=== PATIENT | male | born 1995 | race Native Hawaiian/Other Pacific Islander ===

== ENCOUNTER 2017-07-24 21:16 | Inpatient (IN) | payer BC ==
[~2017-07-24] VITALS: Ht 162.6 cm; Wt 68.2 kg
[2017-07-24 21:15] VITALS: O2SAT 100
[~2017-07-24 21:16] MED LIST: CALCIUM CHLORIDE 10% SOLN 1 GRAM/10 ML SYR IV ONE; DEXAMETHASONE SOD PHOS 4 MG/ML VIAL IV ONE; NORMOSOL R INJ 1,000 ML IV ONE; ONDANSETRON HCL 4 MG/2 ML VIAL IV ONE; PHENYLEPH/NS 1000 MCG/10 ML SYR IV ONE; PROPOFOL 200 MG/20 ML AMP IV ONE; SUCCINYLCHOLINE CHLORIDE 200 MG/10 ML VIAL IV ONE; ceFAZolin INJ 1,000 MG VIAL IV ONE
[2017-07-24] MEDS ORDERED: ONDANSETRON HCL 4 MG/2 ML VIAL ONE (21:24)
[2017-07-24] MEDS ORDERED: DIPHTH/TETANUS/ACEL PERTUSSIS (BOOSTER) 0.5 ML VIAL/PFS IM ONE (21:24)
[2017-07-24 21:40] LABS: AUTOMATED NEUTROPHIL # 12.7 TH/MM3 (1.8-7.7); BASOPHIL # 0.1 TH/MM3 (0-0.2); BASOPHIL % 0.5 % (0.0-2.0); EOSINOPHIL # 0.5 TH/MM3 (0-0.4); EOSINOPHIL % 2.5 % (0.0-4.0); HEMATOCRIT 31.3 % (39.0-51.0); HEMOGLOBIN 10.2 GM/DL (13.0-17.0); LYMPH % 25.3 % (9.0-44.0); LYMPHOCYTE # 4.9 TH/MM3 (1.0-4.8); MEAN CELL VOLUME 76.6 FL (80.0-100.0); MEAN CORPUSCULAR HGB CONC 32.6 % (32.0-36.0); MEAN PLATELET VOLUME 6.8 FL (7.0-11.0); MONO % 6.2 % (0.0-8.0); MONOCYTE # 1.2 TH/MM3 (0-0.9); NEUT % 65.5 % (16.0-70.0); PLATELET COUNT 325 TH/MM3 (150-450); RED BLOOD COUNT 4.09 MIL/MM3 (4.50-5.90); RED CELL DISTRIBUTION WIDTH 13.9 % (11.6-17.2); WHITE BLOOD COUNT 19.4 TH/MM3 (4.0-11.0)
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
[2017-07-24] MEDS ORDERED: HEPARIN SODIUM - SQ 10,000 UNITS/ML VIAL ONE (21:54)
[2017-07-24] MEDS ORDERED: HEPARIN SODIUM - IV 10,000 UNITS/10 ML VIAL ONE (21:54)
[2017-07-24] MEDS ORDERED: PROTAMINE SULFATE 50 MG/5 ML VIAL ONE (21:55)
[2017-07-24] MEDS ORDERED: CEFAZOLIN INJ 2,000 MG in SODIUM CHLORIDE 0.9% INJ 100 ML IV SCH (22:15)
--- NOTE | 2017-07-24 22:15 | RADRPT ---
EXAM DATE/TIME: 07/24/2017 21:18 [facility] COMPARISON: No previous studies available for comparison. INDICATIONS : Trauma alert. Right forearm laceration. MEDICAL HISTORY : None. SURGICAL HISTORY : None. ENCOUNTER: Initial ACUITY: 1 day PAIN SCORE: 8/10 LOCATION: Right forearm FINDINGS: No acute bony abnormality. Right forearm laceration. CONCLUSION: 1. No acute bony abnormality or radiopaque foreign body. Misha Gomez MD on July 24, 2017 at 22:12 Board Certified Radiologist. This report was verified electronically.
--- NOTE | 2017-07-24 22:28 | RADRPT ---
EXAM DATE/TIME: 07/24/2017 21:18 [facility] COMPARISON: No previous studies available for comparison. INDICATIONS : Trauma alert. Right forearm laceration. MEDICAL HISTORY : None. SURGICAL HISTORY : None. ENCOUNTER: Initial ACUITY: 1 day PAIN SCORE: 8/10 LOCATION: Right forearm FINDINGS: A single view of the chest demonstrates the lungs to be symmetrically aerated without evidence of mas s, infiltrate or effusion. The cardiomediastinal contours are unremarkable. Osseous structures are intact. CONCLUSION: No acute disease. Misha Gomez MD on July 24, 2017 at 22:24 Board Certified Radiologist. This report was verified electronically.
[2017-07-24] MEDS ORDERED: *MEPERIDINE 25 MG INJ VIAL PERIprocedural Use ONLY ONE (23:30)
[2017-07-24] MEDS ORDERED: MORPHINE SULFATE 2 MG/ML SYRINGE IV PRN (23:45)
[2017-07-25] MEDS ORDERED: DO NOT ADM ANY ANTICOAGULANT DRUGS PRN (00:15)
[2017-07-25] MEDS ORDERED: diphenhydrAMINE HCL 50 MG/ML VIAL ONE (06:50)
[2017-07-25] MEDS ORDERED: MORPHINE SULFATE 2 MG/ML SYRINGE IV PUSH PRN (07:00)
[2017-07-25] MEDS ORDERED: ENALAPRILAT 1.25 MG/ML VIAL IV PUSH PRN (07:00)
[2017-07-25] MEDS ORDERED: SODIUM CHLORIDE 0.9% FLUSH 10 ML FLUSH IV FLUSH PRN (07:00)
[2017-07-25] MEDS ORDERED: ONDANSETRON HCL 4 MG/2 ML VIAL IV PUSH PRN (07:00)
[2017-07-25] MEDS ORDERED: ACETAMINOPHEN/HYDROcodone 325 MG/5 MG TAB PO PRN (07:00)
[2017-07-25] MEDS ORDERED: POTASSIUM CHLORIDE 20 MEQ CONTROLLED RELEASE TAB PO ONE (08:00)
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
[2017-07-25] MEDS: GABAPENTIN 300 MG CAP PO SCH ×3 (11:28→18:00)
[2017-07-25] MEDS: DOCUSATE SODIUM 100 MG CAP PO SCH ×2 (11:28→20:31)
[2017-07-25] MEDS: ACETAMINOPHEN/HYDROcodone 325 MG/5 MG TAB PO PRN ×2 (11:31→19:22)
[2017-07-25] MEDS: MAGNESIUM HYDROXIDE SUSP 30 ML CUP PO SCH ×2 (11:34→20:31)
[2017-07-25 12:00] VITALS: BP 188/82; PULSE 59; RESP 18; TEMP 97.8; O2SAT 100
[2017-07-25] MEDS: SODIUM CHLOR 0.9% 1000 ML INJ 1,000 ML IV SCH ×2 (12:30)
[2017-07-25 13:32] VITALS: O2SAT 100
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
[2017-07-25 16:00] VITALS: BP 162/70; PULSE 70; RESP 18; TEMP 97.4; O2SAT 98
[2017-07-25 19:19] VITALS: BP 183/93; PULSE 97; RESP 18; TEMP 98; O2SAT 100
[2017-07-25 20:30] VITALS: BP 144/87
[2017-07-25] MEDS: ENOXAPARIN SODIUM 30 MG/0.3 ML SYRINGE SQ SCH (20:31)
[2017-07-26] MEDS: ACETAMINOPHEN/HYDROcodone 325 MG/5 MG TAB PO PRN ×3 (00:51→18:50)
[2017-07-26 00:52] VITALS: BP 130/63; PULSE 103; RESP 19; TEMP 98; O2SAT 100
[2017-07-26] MEDS: SODIUM CHLOR 0.9% 1000 ML INJ 1,000 ML IV SCH ×2 (01:00→13:30)
[2017-07-26 05:10] VITALS: BP 123/58; PULSE 65; RESP 18; TEMP 97.5; O2SAT 100
[2017-07-26 06:46] LABS: ALT (GPT) 21 U/L (12-78); AST (GOT) 22 U/L (15-37); BICARBONATE 30.1 MEQ/L (21.0-32.0); BLOOD UREA NITROGEN 9 MG/DL (7-18); CALCIUM 7.9 MG/DL (8.5-10.1); CHLORIDE 106 MEQ/L (98-107); CREATININE 0.81 MG/DL (0.60-1.30); GLOMERULAR FILTRATION RATE 82 ML/MIN (>89); GLUCOSE,RANDOM 106 MG/DL (74-106); SODIUM (NA) 142 MEQ/L (136-145)
[2017-07-26 06:48] LABS: ALKALINE PHOSPHATASE 31 U/L (45-117); TOTAL BILIRUBIN ADULT 0.7 MG/DL (0.2-1.0); TOTAL PROTEIN 5.6 GM/DL (6.4-8.2)
[2017-07-26 06:49] LABS: AUTOMATED NEUTROPHIL # 6.4 TH/MM3 (1.8-7.7); BASOPHIL % 0.2 % (0.0-2.0); EOSINOPHIL # 0.2 TH/MM3 (0-0.4); EOSINOPHIL % 1.5 % (0.0-4.0); HEMOGLOBIN 9.2 GM/DL (13.0-17.0); LYMPH % 34.7 % (9.0-44.0); MEAN CELL VOLUME 77.5 FL (80.0-100.0); MEAN CORPUSCULAR HEMOGLOBIN 26.6 PG (27.0-34.0); MEAN CORPUSCULAR HGB CONC 34.3 % (32.0-36.0); MEAN PLATELET VOLUME 7.1 FL (7.0-11.0); MONO % 7.7 % (0.0-8.0); MONOCYTE # 0.9 TH/MM3 (0-0.9); NEUT % 55.9 % (16.0-70.0); PLATELET COUNT 189 TH/MM3 (150-450); RED BLOOD COUNT 3.48 MIL/MM3 (4.50-5.90); RED CELL DISTRIBUTION WIDTH 14.7 % (11.6-17.2); WHITE BLOOD COUNT 11.5 TH/MM3 (4.0-11.0)
[2017-07-26] MEDS ORDERED: DOCU1CAP39 PO (07:53)
[2017-07-26] MEDS ORDERED: MAGN30S PO (07:53)
[2017-07-26 07:57] VITALS: BP 159/69; PULSE 71; RESP 18; TEMP 98.1; O2SAT 100
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
[2017-07-26] MEDS: GABAPENTIN 300 MG CAP PO SCH ×3 (09:24→18:49)
[2017-07-26] MEDS: MAGNESIUM HYDROXIDE SUSP 30 ML CUP PO SCH (09:24)
[2017-07-26] MEDS: ENOXAPARIN SODIUM 30 MG/0.3 ML SYRINGE SQ SCH (09:24)
[2017-07-26] MEDS: DOCUSATE SODIUM 100 MG CAP PO SCH (09:24)
[2017-07-26 11:55] VITALS: BP 177/74; PULSE 84; RESP 18; TEMP 97.4; O2SAT 98
[2017-07-26 16:00] VITALS: BP 133/97; PULSE 87; RESP 18; TEMP 97.9; O2SAT 100
--- NOTE | 2017-08-03 15:22 | HHI.DS ---
Discharge Summary Admission Date Jul 24, 2017 at 21:55 Discharge Date: Jul 26, 2017 Admitting Diagnosis Vascular injury right upper extremity with hemorrhagic shock (1) Hemorrhagic shock ICD Codes: R57.8 - Other shock Diagnosis: Principal Status: Acute (2) Laceration of arm, right, multiple sites ICD Codes: S41.111A - Laceration without foreign body of right upper arm, initial encounter Diagnosis: Principal Status: Acute (3) Vascular injury of arm ICD Codes: S45.909A - Unspecified injury of unspecified blood vessel at shoulder and upper arm level, unspecified arm, initial encounter Diagnosis: Principal Status: Acute Significant Findings Laboratory Tests Test 07/24/17 21:21 07/24/17 22:26 07/26/17 05:25 07/30/17 06:20 Bedside Hemoglobin 10.2 G/DL Bedside Hematocrit 30.0 % Bedside Sodium 145 MMOL/L Bedside Potassium 2.8 MMOL/L Bedside Chloride 103 MMOL/L Bedside Blood Urea Nitrogen 14 MG/DL Bedside Creatinine 1.1 MG/DL Bedside Glucose 124 MG/DL Blood Gas Puncture Site UNKNOWN Blood Gas Patient Temperature 98.6 Blood Gas HCO3 23 mmol/L Blood Gas Base Excess -1.7 mmol/L Blood Gas Oxygen Saturation 96 % Arterial Blood pH 7.39 Arterial Blood Partial Pressure CO2 38 mmHg Arterial Blood Partial Pressure O2 272 mmHg Arterial Blood Oxygen Content 10.0 Vol % Arterial Blood Carboxyhemoglobin 1.5 % Arterial Blood Methemoglobin 1.7 % Blood Gas Hemoglobin 6.9 G/DL Oxygen Delivery Device OR Blood Gas Inspired Oxygen 56 % White Blood Count 11.5 TH/MM3 Red Blood Count 3.48 MIL/MM3 Hemoglobin 9.2 GM/DL Hematocrit 27.0 % Mean Corpuscular Volume 77.5 FL Mean Corpuscular Hemoglobin 26.6 PG Mean Corpuscular Hemoglobin Concent 34.3 % Red Cell Distribution Width 14.7 % Platelet Count 189 TH/MM3 Mean Platelet Volume 7.1 FL Neutrophils (%) (Auto) 55.9 % Lymphocytes (%) (Auto) 34.7 % Monocytes (%) (Auto) 7.7 % Eosinophils (%) (Auto) 1.5 % Basophils (%) (Auto) 0.2 % Neutrophils # (Auto) 6.4 TH/MM3 Lymphocytes # (Auto) 4.0 TH/MM3 Monocytes # (Auto) 0.9 TH/MM3 Eosinophils # (Auto) 0.2 TH/MM3 Basophils # (Auto) 0.0 TH/MM3 CBC Comment DIFF FINAL Differential Comment Blood Urea Nitrogen 9 MG/DL Creatinine 0.81 MG/DL Random Glucose 106 MG/DL Total Protein 5.6 GM/DL Albumin 3.0 GM/DL Calcium Level 7.9 MG/DL Alkaline Phosphatase 31 U/L Aspartate Amino Transf (AST/SGOT) 22 U/L Alanine Aminotransferase (ALT/SGPT) 21 U/L Total Bilirubin 0.7 MG/DL Sodium Level 142 MEQ/L Potassium Level 3.6 MEQ/L Chloride Level 106 MEQ/L Carbon Dioxide Level 30.1 MEQ/L Anion Gap 6 MEQ/L Estimat Glomerular Filtration Rate 82 ML/MIN Lab Scanned Report Lab Reports - Other [id number] Imaging Last Impressions Chest X-Ray [id number]/[id number] Signed Impressions: Service Date/Time: Monday, July 24, 2017 21:18 - CONCLUSION: No acute disease. Misha Gmoez MD Radius/Ulna X-Ray 07/24/17 0000 Signed Impressions: Service Date/Time: Monday, July 24, 2017 21:18 - CONCLUSION: 1. No acute bony abnormality or radiopaque foreign body. Misha Gomez MD PE at Discharge GENERAL: This is a 21 year old male lying in bed. No distress noted. SKIN: Warm and dry. HEAD: Atraumatic. Normocephalic. EYES: PERRLA ENT: No nasal bleeding or discharge. Mucous membranes pink and moist. NECK: Trachea midline. No JVD. CARDIOVASCULAR: Regular rate and rhythm. RESPIRATORY: No accessory muscle use. Lungs are clear to auscultation. Breath sounds equal bilaterally. No distress or dyspnea. GASTROINTESTINAL: BS + x 4 quads. Abdomen soft, non-tender, nondistended. MUSCULOSKELETAL: Extremities without cyanosis, or edema. Right arm in Lucas bandage and sling. + peripheral pulses x 4 extremities. Warm with good capillary refill and sensation. Patient has decreased sensation to right index and middle finger. MAEW. NEUROLOGICAL: Awake and alert. Normal speech and pattern. Hospital Course [place]: This is a 21 year old male who punched a window. There was arterial bleeding with tourniquet applied for 1 hour. Unable to feel his right hand and forearm. Hypotensive and tachycardic. 2 units of emergency release blood INJURIES: RIGHT radial artery laceration Hypovolemia Procedures: 07/25: Repair of right radial artery. Repair of deep laceration. Consults: Vascular. Hand surgery. Case management. The patient is now tolerating a po diet. Eating and drinking well. Pain is being managed well with PO pain medications, and patient is being a provided with a script for pain meds upon discharge. (NO driving while taking narcotic pain medication enforced to patient.) Pt is having regular bowel movements, and have recommended to patient to continue with stool softeners while taking narcotic pain medications to prevent constipation. Pt has been participating in PT and OT while admitted at [facility] and has been ambulating with their assistance and independently . All follow up appointments have been provided and discussed with the patient. It is recommended that the patient keeps all his follow up appointments for continued recovery. Patient's condition and plan of care discussed with collaborating trauma surgeon. He is agreeable to plan for discharge today. Therefore, the patient is stable to be safely discharged home from a trauma surgery standpoint. Thank you for allowing us to participate in his care. We wish Jeevan the best in his recovery. Follow up with Dr. Velasquez outpatient Right radial artery laceration Vascular surgery consult Hand surgery consult 07/25: Right radial artery repair. Repair of deep laceration. Supportive care Sling for comfort and support Pain management PT and OT ordered [facility] out of bed Follow-up with hand surgery/Dr. Velasquez outpatient next week Pt Condition on Discharge: Stable Discharge Disposition: Discharge Home Discharge Instructions DIET: Follow Instructions for: As Tolerated, No Restrictions Activities you can perform: Non Weight Bearing Activities to Avoid: Driving for 24 hrs, Concussion Sports, Contact Sports, Lifting/Bending, Weight Bearing, Prolonged Standing, Strenuous Activity Other Activity Instructions: NWB RUE No driving while taking narcotic painmeds Remarks Seen and examined with the nurse practitioner overall stable we will discharge with outpatient follow-up Felisa Cates Aug 03, 2017 15:22 Monique Navarro MD Aug 09, 2017 14:56
--- NOTE | 2017-08-10 14:24 | MP ---
cc: David Holley MD DATE OF OPERATION: 07/24/2017 DATE OF SURGERY: 07/24/2017 PREOPERATIVE DIAGNOSIS: Traumatic injury of the right arm vasculature. POSTOPERATIVE DIAGNOSIS: Transection of right ulnar and radial arteries and transection of the median nerve. OPERATIVE PROCEDURE: Repair of the right dominant radial artery, irrigation and closure. SURGEON: MD Kishan ANESTHESIA: General. ESTIMATED BLOOD LOSS: 100 mL. INDICATIONS FOR PROCEDURE: This 21-year-old male apparently states he was angry, so he punched a glass plate window and of course cut his arm. The patient was transferred to our institution with a tourniquet on his arm. Apparently with release of the tourniquet, there was brisk bleeding. The patient was taken to the operating room. OPERATIVE PROCEDURE: The area is prepped and draped and then exposed. I remove the tourniquet and replace it with the operating room tourniquet. This one is now released to see what is bleeding. The patient has several bleeders from the cubital vein branches. These are quickly clamped with hemostats, ligated with 3-0 Vicryls. Now arterial bleeding is attended. The has no pulses in his hand and hand is cool. The patient's vessel is explored. He has a very high division of the brachial artery so the brachial artery is not in the antecubital fossa. Instead there is a very tiny ulnar artery and a fairly dominant, fairly big radial artery. The proximal ulnar artery is located and ligated; it is about 1 mm. The distal one cannot be even found. The radial artery, on the other hand, is big; it is about 3.5 mm. This one is transected; however, edges are brought together by dividing some of the tiny branches and then the radial artery is freshened up with Overton scissors and repaired with interrupted 6-0 Prolene stitches. Blood flow is reestablished. The patient now has a bounding pulse in his radial artery and hand readily pinks up. The rest of the antecubital fossa is explored. The patient clearly has cut median nerve and I will discuss this with Dr. Velasquez tomorrow. Right now there is too much swelling to do anything to it. The area is irrigated with saline and skin is approximated with 3-0 Prolene. The patient tolerates the procedure well. MD TESSIE Diego/FAUZIA , 01:53 PM , 02:23 PM
[2017-08-10] MEDS ORDERED: HYDR-3288 PO (15:57)
[2017-08-10] MEDS ORDERED: CEPH-460 PO (15:57)
== END 2017-07-26 19:35 | disposition home or self-care (01) | DRG 907 ==
LOC: HOR 21:16 → NEDA 21:55 → EDBD 21:55 → N06B 07-25 08:56
PROVIDERS: ADMIT Surgery; ATTEND Surgery
PROC: 03QB0ZZ Repair Right Radial Artery, Open Approach (ICD-10-PCS; 2017-07-24)
PROC: 30233N1 Transfusion of Nonautologous Red Blood Cells into Peripheral Vein, Percutaneous Approach (ICD-10-PCS; principal; 2017-07-24 21:45)
DX: S55.111A Laceration of radial artery at forearm level, right arm, initial encounter (principal); T79.4XXA Traumatic shock, initial encounter; S54.11XA Injury of median nerve at forearm level, right arm, initial encounter; S51.011A Laceration without foreign body of right elbow, initial encounter; R61 Generalized hyperhidrosis; R20.0 Anesthesia of skin; R00.0 Tachycardia, unspecified; W22.09XA Striking against other stationary object, initial encounter; F12.90 Cannabis use, unspecified, uncomplicated; F17.200 Nicotine dependence, unspecified, uncomplicated
CPT/HCPCS: 36430; 36600; 71045; 80048; 80053; 82805; 85025; 85384; 85610; 85730; 86850; 86900; 86901; 86920; 90471; 90715; 94150; 96374; 99291; G0390; J0330; J0690; J1100; J1200; J1644; J1650; J2175; J2370; J2405; J2720; J3010; J7030; P9016

== ENCOUNTER → 2017-08-10 | Day surgery (SDC) | payer BC ==
[~2017-08-10] VITALS: Ht 162.6 cm; Wt 62.3 kg
[~2017-08-10] MED LIST changes: +*morphine SULFATE 4 MG/ML PERIprocedure ONLY ONE; +ACETAMINOPHEN 1000 MG/100 ML 100 ML IV ONE; +ACETAMINOPHEN/HYDROcodone 325 MG/5 MG TAB PO PRN; +BUPIVACAINE HCL PF 0.5% 30 ML VIAL ONE; -CALCIUM CHLORIDE 10% SOLN 1 GRAM/10 ML SYR IV ONE; +CEPH-460 PO; +CHLORHEXIDINE GLUCONATE 2 % 1 PACK (2 CLOTHS) TOPICAL PRN; +DO NOT ADM ANY ANTICOAGULANT DRUGS PRN; +DOCU1CAP39 PO; +ESMOLOL HCL 100 MG/10 ML VIAL IV ONE; +FAMOTIDINE 20 MG/2 ML VIAL ONE; +GLYCOPYRROLATE 1 MG/5 ML SYRINGE IV PUSH ONE; +HYDR-3288 PO; +INSULIN HUMAN REGULAR 1,000 UNITS/10 ML VIAL SQ PRN; +KETOROLAC TROMETHAMINE 30 MG/ML (IVP) VIAL IV PUSH ONE; +LACTATED RINGER'S 1000 ML INJ 1,000 ML IV ONE; +LACTATED RINGER'S 1000 ML IV PRN; +LIDOCAINE HCL 1% PF 5 ML SYRINGE OTHER ONE; +LIDOCAINE HCL 2% 50 ML VIAL ONE; +MAGN30S PO; +MEPERIDINE HCL 50 MG/ML VIAL IM PRN; +METOPROLOL TARTRATE 25 MG TAB PO PRN; +MIDAZOLAM HCL 2 MG/2 ML VIAL ONE; +NEOMYCIN/POLYMYXIN 1 ML G.U. IRRIGANT ONE; +NEOSTIGMINE 5 MG/5 ML SYRINGE IV PUSH ONE; -NORMOSOL R INJ 1,000 ML IV ONE; -ONDANSETRON HCL 4 MG/2 ML VIAL IV ONE; +ONDANSETRON HCL 4 MG/2 ML VIAL IV PUSH ONE; -PHENYLEPH/NS 1000 MCG/10 ML SYR IV ONE; +POVIDONE IODINE 5% (ANTISEPSIS KIT) 4 APPLICATIONS EACH NARE PRN; +ROCURONIUM INJ 50 MG/5 ML SYRINGE IV PUSH ONE; +SODIUM CHLORID 0.9% 500 ML IV PRN; +STERILE WATER FOR INJECTION 20 ML VIAL IV ONE; -SUCCINYLCHOLINE CHLORIDE 200 MG/10 ML VIAL IV ONE; +ceFAZolin 1,000 MG/NS 100 ML IV SCH; +ePHEDrine/NS 25 MG/5 ML SYRINGE IV ONE
--- NOTE | 2017-08-10 17:03 | MP ---
cc: Farhan Velasquez MD DATE OF OPERATION: 08/10/2017 PREOPERATIVE DIAGNOSIS: Right arm laceration with median nerve injury. PROCEDURE PERFORMED: 1. Right arm exploration. 2. Right median nerve repair with NeuraWrap. 3. Right biceps muscle repair. SURGEON: Farhan Velasquez III, MD PROCEDURE: The patient was brought to the operating room, placed supine on the operating table. After the correct site and side of surgery were verified by members of each team in the room multiple times including the patient and myself and, after adequate preoperative markings and preoperative written consent was verified by everyone and, after adequate preoperative timeout was performed to everyone's satisfaction, after adequate general anesthesia had been achieved, the right upper extremity was prepped and draped in traditional sterile surgical fashion. A 50/50 mixture of 2% plain lidocaine and 0.5% plain Marcaine was infiltrated in the skin and subcutaneous tissue. The existing sutures were removed. Exploration revealed a lot of healing tissue and some inflammation. Incisions was made proximally and distally to go into [place] and the brachial artery was identified as was the median nerve proximally and traced distally into the wound and the median nerve injury was readily identified. Bovie electrocautery was used as needed. A small amount of the superficial layer of the biceps muscle was also transected in the injury, but the biceps tendon distally was completely intact as were the remainder of the forearm musculature. The forearm flexor aponeurosis and fascia were then opened longitudinally to enhance exposure of the distal aspect of the median nerve, which was then again identified. The median nerve was actually transected approximately 80% of its total thickness with 1 large bundle intact. The injured ends were freshened sharply and, using 4-0 Prolene sutures, they were reapposed within 0.5 mm of contact under no tension. Multiple epineural sutures were placed, so there was just barely contact and these sutures were placed around the entire circumference. A single nerve bundle that had itself was then repaired individually. A thorough irrigation was performed using saline. A NeuraWrap tube was then selected and this was then gently wrapped around the entire nerve with the injury in its central-most part and then this was secured to the epineurium on both ends at 3, 6 and 9 o'clock. It was then closed and secured a few more times to the epineural tissue within. It was then closed on itself without compressing or causing any other tension or undue pressure in any way. It was then flushed using normal saline on an Angiocath and any air evacuated. There were no other anatomic abnormalities identified. Thorough irrigation was performed. The tourniquet was never used during this case. The biceps musculature was then repaired using multiple 0 Vicryl sutures in simple and in [id number] fashion. The forearm fascia was then reapproximated using interrupted 0 Vicryl sutures. The deep subcutaneous tissue was reapproximated using multiple interrupted buried 4-0 Vicryl sutures and then the skin edges were reapproximated using running and interrupted 4-0 chromic sutures. A few separate unrelated Prolene sutures from the lateral aspect of the arm were left and will be removed next week. The hand and arm were thoroughly cleansed and dried. Capillary refill was less than 2 seconds in all fingertips and a palpable radial pulse was present the entire time. Doppler ultrasound revealed a triphasic radial signal as well. The hand and arm were thoroughly cleansed and dried. A 50/50 mixture of 2% plain lidocaine and 0.5% plain Marcaine was infiltrated in the skin and subcutaneous tissue postoperatively for a little bit of postoperative pain control. Betadine and Adaptic dressing was applied on top of the wound, followed by a bulky soft dressing, gently placed circumferential Sof- Rol from the distal palm to axilla and then a dorsal long-arm, elbow immobilizing splint, keeping the arm to 110 degrees of flexion. The patient was awakened from anesthesia and transported to the postanesthesia care unit, awake and in stable condition at the end of the case. Sponge, needle and instrument counts were correct at the end of the case as reported by the nurses in the room. MD SHARLA Brock/FAUZIA , 04:08 PM , 05:02 PM
[2017-08-10 17:15] VITALS: BP 128/72; PULSE 68; RESP 20; TEMP 98; O2SAT 100
== END | disposition home or self-care (01) ==
LOC: HSDC 11:33
PROVIDERS: ATTEND Orthopaedic Surgery Hand Surgery
DX: S54.11XA Injury of median nerve at forearm level, right arm, initial encounter (principal); S46.221A Laceration of muscle, fascia and tendon of other parts of biceps, right arm, initial encounter; S45.901A Unspecified injury of unspecified blood vessel at shoulder and upper arm level, right arm, initial encounter; F17.200 Nicotine dependence, unspecified, uncomplicated; W22.09XA Striking against other stationary object, initial encounter; W25.XXXA Contact with sharp glass, initial encounter
CPT/HCPCS: 01610; 24341; 64857; C9352; J0131; J0690; J1100; J1885; J2250; J2270; J2405; J2710; J3010; J7120